=== PATIENT | female | born 1955 | race Caucasian/White ===

== ENCOUNTER 2022-06-09 13:03 | Outpatient (REF) | payer MEDICARE, SELFPAY ==
[2022-06-09 16:05] LABS: SARS PCR* Negative SARS-CoV-2 (Negative)
== END 2022-06-09 13:04 | disposition home or self-care (01) ==
LOC: NPINS 13:03
PROVIDERS: Visit Provider Internal Medicine
DX: Z20.822 Contact with and (suspected) exposure to COVID-19 (principal)
CPT/HCPCS: 87635

== ENCOUNTER 2022-06-12 19:45 | Outpatient (CLI) | payer MEDICARE, SELFPAY | END 2022-06-12 19:46 | disposition home or self-care (01) | LOC: SLEEP 19:46 | PROVIDERS: PCP Family Medicine; Visit Provider Family Medicine | DX: G47.33 Obstructive sleep apnea (adult) (pediatric) (principal) | CPT/HCPCS: 95810 ==

== ENCOUNTER 2022-06-30 12:36 | Outpatient (CLI) | payer MEDICARE, SELFPAY | END 2022-06-30 12:37 | disposition home or self-care (01) | LOC: RAD 12:37 | PROVIDERS: PCP Family Medicine; Visit Provider Family Medicine | DX: I35.8 Other nonrheumatic aortic valve disorders (principal) | CPT/HCPCS: 93306; Q9957 ==

== ENCOUNTER 2022-09-21 10:59 | Outpatient (CLI) | payer MEDICARE, SELFPAY ==
[2022-09-21 22:06] LABS: Albumin* 4.7 g/dL (3.3-5.0); Chloride* 107 mmol/L (96-114)
[2022-09-21 22:07] LABS: Potassium* 5.2 mmol/L (3.6-5.1); Sodium* 142 mmol/L (135-149)
[2022-09-21 22:09] LABS: Carbon Dioxide* 27 mmol/L (20-32); Cholesterol* 195 mg/dL (90-199); Creatinine* 0.9 mg/dL (0.5-1.5); Estimated Glomerular Filt Rate 71 ml/min
[2022-09-21 22:10] LABS: Alanine Aminotransferase* 37 U/L (4-35); Alkaline Phosphatase* 100 U/L (40-150); Aspartate Amino Transferase* 32 U/L (12-35); Bilirubin Total* 0.6 mg/dL (0.1-1.5); Blood Urea Nitrogen* 13 mg/dL (7-30); Glucose* 101 mg/dL (60-115); Total Protein* 7.3 g/dL (6.0-8.3); Triglycerides* 215 mg/dL (40-149)
[2022-09-21 22:11] LABS: HDL Cholesterol* 77 mg/dL (>=50); LDL Cholesterol Calculated 76 mg/dL (<100); Total Protein Urine < 5 mg/dL
[2022-09-21 22:14] LABS: Vitamin D 25 Hydroxy* 40 ng/mL (30-80)
[2022-09-21 22:17] LABS: Microalbumin Creatinine Ratio 0 mg/g (0-30); Microalbumin Urine 1 mg/dL
[2022-09-21 22:45] LABS: Hepatitis C Virus Antibody* Negative (Negative)
[2022-09-21 22:52] LABS: Vitamin B12* 379 pg/mL (243-894)
== END 2022-09-21 11:00 | disposition home or self-care (01) ==
LOC: FRMREF 11:23
PROVIDERS: PCP Family Medicine; Visit Provider Family Medicine
DX: N18.30 Chronic kidney disease, stage 3 unspecified (principal); E11.9 Type 2 diabetes mellitus without complications; E03.9 Hypothyroidism, unspecified; E78.00 Pure hypercholesterolemia, unspecified; I10 Essential (primary) hypertension; E55.9 Vitamin D deficiency, unspecified; Z11.59 Encounter for screening for other viral diseases; Z79.899 Other long term (current) drug therapy
CPT/HCPCS: 80053; 80061; 82043; 82306; 82570; 82607; 84156; 84443; 86803

== ENCOUNTER 2022-11-03 14:40 | Outpatient (CLI) | payer MEDICARE, SELFPAY ==
--- NOTE | 2022-11-03 15:00 | CRLHL7_ITS ---
For Patients: As a result of the Century Cures Act, medical imaging exams and procedure reports are released immediately into your electronic medical record. You may view this report before your referring provider. If you have questions, please contact your health care provider. BILATERAL SCREENING MAMMOGRAM WITH COMPUTER-AIDED DETECTION AND TOMOSYNTHESIS TECHNIQUE: CC and MLO views were obtained. These mammographic images have been obtained using full-field digital technique. These mammographic images were interpreted with the benefit of computer-aided detection. Breast Tomosynthesis was used in this interpretation. COMPARISON FILM: 08/25/20, 09/07/17, 08/30/16. FINDINGS: There are scattered areas of fibroglandular density IMPRESSION: There is no radiographic evidence for malignancy. ASSESSMENT: BI-RADS Category 1: Negative RECOMMENDATION: Routine screening mammogram in 1 year. A lay language report of this examination will be provided to the patient. Champ Miner M.D. Diagnostic Radiologist [email or web address] LIDA/yamilet woodard/Dictated by: Champ Miner MD @ 11/08/2022 11:17:00 AM (Electronically Signed)
== END 2022-11-03 14:41 | disposition home or self-care (01) ==
LOC: MAMMO 14:42
PROVIDERS: PCP Family Medicine; Visit Provider Family Medicine
DX: Z12.31 Encounter for screening mammogram for malignant neoplasm of breast (principal)
CPT/HCPCS: 77063; 77067